=== PATIENT | female | born 2000 | race Two or more races ===

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

== ENCOUNTER 2022-02-23 15:16 | Outpatient (CLI) | payer OTHER | END 2022-02-24 17:37 | disposition home or self-care (01) | LOC: OBS/DEL 15:16 | PROVIDERS: ATTEND Obstetrics & Gynecology | DX: O26.893 Other specified pregnancy related conditions, third trimester (principal); Z3A.35 35 weeks gestation of pregnancy; Z20.822 Contact with and (suspected) exposure to COVID-19 ==

== ENCOUNTER 2022-03-15 14:27 | Inpatient (IN) | payer OTHER ==
[~2022-03-15] VITALS: Ht 149.9 cm; Wt 71.2 kg
== END 2022-03-19 14:15 | disposition home or self-care (01) | DRG 806 ==
LOC: EDSTATUS 14:30 → LDR 03-17 12:01 → OB/GYN 03-17 23:27
PROVIDERS: ADMIT Obstetrics & Gynecology; ATTEND Obstetrics & Gynecology
PROC: 10E0XZZ Delivery of Products of Conception, External Approach (ICD-10-PCS; principal; 2022-03-17)
PROC: 0UQG7ZZ Repair Vagina, Via Natural or Artificial Opening (ICD-10-PCS; 2022-03-17)
PROC: 4A1HXCZ Monitoring of Products of Conception, Cardiac Rate, External Approach (ICD-10-PCS; 2022-03-17)
DX: O71.4 Obstetric high vaginal laceration alone (principal); O41.03X0 Oligohydramnios, third trimester, not applicable or unspecified; Z37.0 Single live birth; Z3A.38 38 weeks gestation of pregnancy; Z20.822 Contact with and (suspected) exposure to COVID-19

== ENCOUNTER → 2023-04-24 | Emergency (ER) | payer OTHER ==
[~2023-04-24] VITALS: Ht 147.3 cm; Wt 50.8 kg
[2023-04-24 20:26] LABS: HEMOGLOBIN 13.9 g/dL (12.0-15.00); MEAN CELL VOLUME 86.2 fL (80.00-100.00); MEAN CORPUSCULAR HEMOGLOBIN 29.3 pg (27.00-32.0); MEAN CORPUSCULAR HGB CONC 33.9 g/dl (32.0-36.0); PLATELET COUNT 412 K/uL (150-450); RED BLOOD COUNT 4.75 M/uL (4.00-6.00); RED CELL DISTRIBUTION WIDTH 14.4 % (11.5-14.5)
[2023-04-24 20:32] LABS: PH,URINE 6.5 (5.0-8.0); URINE APPEARANCE Clear; URINE BILIRRUBIN Negative (NEGATIVE); URINE BLOOD Negative; URINE COLOR Yellow; URINE GLUCOSE Negative (NEGATIVE); URINE LEUKOCYTE Negative; URINE NITRATE Negative; URINE PROTEIN Negative (NEGATIVE); URINE UROBILINOGEN 0.2 E.U./dl
[2023-04-24 20:33] LABS: URINE BACTERIA 132.2 uL (0.0-1933); URINE EPITHELIAL CELLS 7.2 uL (0.0-38.8); URINE RBC 14.6 uL (0.0-20.8); URINE WBC 2.7 uL (0.0-23.2)
[2023-04-24 20:33] LABS: ERYTHROCYTE SEDIMENTATION RATE 12 mm/hr
[2023-04-24 20:59] LABS: ALT/SGPT 21 U/L (12-78); AST/SGOT 14 U/L (15-37); LDH 145 U/L (84-246); PHOSPHOKINASE CREATININE 52 U/L (26-192)
[2023-04-24 21:10] LABS: ALBUMIN 3.8 gm/dL (3.4-5.0); ALKALINE PHOSPHATASE 75 U/L (50-136); ALT/SGPT 23 U/L (12-78); ANION GAP 7 (10.0-20.0); AST/SGOT 13 U/L (15-37); BILIRUBIN TOTAL 0.26 mg/dL (0.3-1.2); BLOOD UREA NITROGEN 13 mg/dL (7-18); BUN CREA RATIO 15 (7.0-25.0); CALCIUM 9.6 mg/dL (8.5-10.1); CARBON DIOXIDE 31 mEq/L (21-32); CHLORIDE 103 mmol/L (98-107); CREATININE SERUM 0.88 mg/dL (0.55-1.02); GFR 81.92; GLOBULINA 3.6 G/DL (2.4-3.5); GLUCOSE FASTING 90 mg/dL (65-100); OSMOLALITY SERUM 273 MOSM/KG (275-295); POTASSIUM 4.08 mEq/L (3.5-5.1); SODIUM 137 mmol/L (136-145); TOTAL PROTEIN 7.4 gm/dL (6.4-8.2)
[2023-04-24 21:20] LABS: C-REACTIVE PROTEIN < 0.29 MG/DL (0.00-0.29)
== END | disposition home or self-care (01) ==
LOC: ER 18:33 → EMR PED 18:54 → ER 18:54
PROVIDERS: Emergency Medicine Pediatric Emergency Medicine
DX: M54.2 Cervicalgia (principal); R07.9 Chest pain, unspecified; E01.0 Iodine-deficiency related diffuse (endemic) goiter

== ENCOUNTER 2023-04-28 18:33 | Emergency (ER) | payer OTHER ==
[~2023-04-28] VITALS: Ht 147.3 cm; Wt 50.8 kg
[2023-04-28] MEDS ORDERED: GABAPENTIN100 M2 PO (19:10)
[2023-04-28] MEDS ORDERED: HYDROXYCHLOROQ200 MG PO (19:10)
[2023-04-28] MEDS ORDERED: CELEBREX100 MG (19:11)
[2023-04-28] MEDS ORDERED: KETOROLAC TROMETHAMINE 60 MG VIAL IM STA (19:51)
[2023-04-28 20:12] LABS: HEMATOCRIT 43.6 % (36.0-45.00); HEMOGLOBIN 14.9 g/dL (12.0-15.00); MEAN CELL VOLUME 86.3 fL (80.00-100.00); MEAN CORPUSCULAR HEMOGLOBIN 29.5 pg (27.00-32.0); MEAN CORPUSCULAR HGB CONC 34.1 g/dl (32.0-36.0); PLATELET COUNT 445 K/uL (150-450); RED BLOOD COUNT 5.05 M/uL (4.00-6.00); RED CELL DISTRIBUTION WIDTH 14.1 % (11.5-14.5)
[2023-04-28 20:37] LABS: BILIRUBIN TOTAL 0.27 mg/dL (0.3-1.2); CALCIUM 9.4 mg/dL (8.5-10.1); CREATININE SERUM 0.9 mg/dL (0.55-1.02); GFR 79.82; GLOBULINA 4.4 G/DL (2.4-3.5); POTASSIUM 3.75 mEq/L (3.5-5.1); TOTAL PROTEIN 8.4 gm/dL (6.4-8.2)
== END 2023-04-28 21:30 | disposition home or self-care (01) ==
LOC: ER 18:34 → EMR PED 18:59
DX: R52 Pain, unspecified (principal)

== ENCOUNTER 2023-05-04 13:31 | Emergency (ER) | payer OTHER ==
[~2023-05-04] VITALS: Ht 147.3 cm; Wt 51.3 kg
[~2023-05-04 13:31] MED LIST changes: +CELEBREX100 MG; +GABAPENTIN100 M2 PO; +HYDROXYCHLOROQ200 MG PO
[2023-05-04 15:31] LABS: HEMATOCRIT 40.9 % (36.0-45.00); HEMOGLOBIN 14.1 g/dL (12.0-15.00); MEAN CELL VOLUME 86.5 fL (80.00-100.00); MEAN CORPUSCULAR HEMOGLOBIN 29.8 pg (27.00-32.0); MEAN CORPUSCULAR HGB CONC 34.5 g/dl (32.0-36.0); PLATELET COUNT 400 K/uL (150-450); RED BLOOD COUNT 4.73 M/uL (4.00-6.00); RED CELL DISTRIBUTION WIDTH 13.4 % (11.5-14.5)
== END 2023-05-04 17:18 | disposition home or self-care (01) ==
LOC: ER 13:31
PROVIDERS: Emergency Medicine
DX: R53.81 Other malaise (principal)

== ENCOUNTER 2023-05-11 21:44 | Emergency (ER) | payer OTHER ==
[~2023-05-11] VITALS: Ht 147.3 cm; Wt 52.2 kg
[2023-05-11] MEDS ORDERED: RINGERS SOLUTION,LACTATED 1,000 ML IV SCH (22:30)
[2023-05-11] MEDS ORDERED: FAMOtidine 10 MG/ML (4ML VIAL) IV SCH (22:30)
[2023-05-12 00:38] LABS: HEMATOCRIT 42.6 % (36.0-45.00); HEMOGLOBIN 14.3 g/dL (12.0-15.00); MEAN CELL VOLUME 87.6 fL (80.00-100.00); MEAN CORPUSCULAR HEMOGLOBIN 29.5 pg (27.00-32.0); MEAN CORPUSCULAR HGB CONC 33.7 g/dl (32.0-36.0); PLATELET COUNT 455 K/uL (150-450); RED BLOOD COUNT 4.86 M/uL (4.00-6.00); RED CELL DISTRIBUTION WIDTH 13.3 % (11.5-14.5)
[2023-05-12 01:02] LABS: PARTIAL THROMBOPLASTIN TIME 32.7 SECONDS (22.0-34.0); PROTHROMBIN TIME 10.5 SECONDS (9.0-11.5)
[2023-05-12 01:07] LABS: ALBUMIN 4.1 gm/dL (3.4-5.0); BILIRUBIN TOTAL 0.37 mg/dL (0.3-1.2); CALCIUM 9.4 mg/dL (8.5-10.1); CREATININE SERUM 0.75 mg/dL (0.55-1.02); GFR 98.52; GLOBULINA 4.2 G/DL (2.4-3.5); POTASSIUM 3.59 mEq/L (3.5-5.1); TOTAL PROTEIN 8.3 gm/dL (6.4-8.2)
== END 2023-05-12 02:25 | disposition home or self-care (01) ==
LOC: ER 21:44 → EMR PED 21:56
PROVIDERS: Emergency Medicine Pediatric Emergency Medicine
DX: R10.2 Pelvic and perineal pain (principal); R51.9 Headache, unspecified; N94.6 Dysmenorrhea, unspecified; Z20.822 Contact with and (suspected) exposure to COVID-19

== ENCOUNTER 2023-05-19 13:06 | Emergency (ER) | payer OTHER ==
[~2023-05-19] VITALS: Ht 147.3 cm; Wt 50.8 kg
[2023-05-19 15:31] LABS: HEMATOCRIT 40.9 % (36.0-45.00); HEMOGLOBIN 14.1 g/dL (12.0-15.00); MEAN CELL VOLUME 87.2 fL (80.00-100.00); MEAN CORPUSCULAR HGB CONC 34.4 g/dl (32.0-36.0); PLATELET COUNT 387 K/uL (150-450); RED BLOOD COUNT 4.69 M/uL (4.00-6.00); RED CELL DISTRIBUTION WIDTH 13.1 % (11.5-14.5)
[2023-05-19 15:54] LABS: ALBUMIN 3.8 gm/dL (3.4-5.0); BILIRUBIN TOTAL 0.33 mg/dL (0.3-1.2); CALCIUM 9.3 mg/dL (8.5-10.1); CREATININE SERUM 0.71 mg/dL (0.55-1.02); GFR 104.95; GLOBULINA 3.8 G/DL (2.4-3.5); POTASSIUM 3.56 mEq/L (3.5-5.1); TOTAL PROTEIN 7.6 gm/dL (6.4-8.2)
== END 2023-05-19 17:43 | disposition home or self-care (01) ==
LOC: ER 13:06 → EMR PED 13:10 → ER 13:10 → EMR PED 17:43
PROVIDERS: Student in an Organized Health Care Education/Training Program
DX: J00 Acute nasopharyngitis [common cold] (principal); Z87.09 Personal history of other diseases of the respiratory system; Z20.822 Contact with and (suspected) exposure to COVID-19

== ENCOUNTER 2023-05-30 20:39 | Emergency (ER) | payer OTHER ==
[~2023-05-30] VITALS: Ht 147.3 cm; Wt 51.7 kg
[2023-05-30] MEDS ORDERED: MAGNESIUM HYDROXIDE 400 MG/5 ML ML PO ONE (22:45)
[2023-05-30] MEDS ORDERED: MINERAL OIL 30 ML BLIST.PACK PO ONE (22:45)
[2023-05-30] MEDS ORDERED: LACTULOSE 20 G/30 ML BLIST.PACK PO ONE (22:45)
[2023-05-30] MEDS ORDERED: FAMOtidine 2 MG/ML REDILUIDO IV ONE (23:00)
[2023-05-30] MEDS ORDERED: 0.9 % SODIUM CHLORIDE 1,000 ML IV ONE (23:00)
[2023-05-30 23:27] LABS: HEMATOCRIT 40.4 % (36.0-45.00); HEMOGLOBIN 13.8 g/dL (12.0-15.00); MEAN CELL VOLUME 85.9 fL (80.00-100.00); MEAN CORPUSCULAR HEMOGLOBIN 29.4 pg (27.00-32.0); MEAN CORPUSCULAR HGB CONC 34.3 g/dl (32.0-36.0); PLATELET COUNT 439 K/uL (150-450); RED CELL DISTRIBUTION WIDTH 12.9 % (11.5-14.5)
[2023-05-31 00:48] LABS: ALBUMIN 4.1 gm/dL (3.4-5.0); BILIRUBIN TOTAL 0.32 mg/dL (0.3-1.2); CALCIUM 10.1 mg/dL (8.5-10.1); CREATININE SERUM 0.73 mg/dL (0.55-1.02); GFR 101.64; GLOBULINA 3.8 G/DL (2.4-3.5); POTASSIUM 4.12 mEq/L (3.5-5.1); TOTAL PROTEIN 7.9 gm/dL (6.4-8.2)
[2023-05-31] MEDS ORDERED: HYOSCYAMINE SULFATE 0.125 MG TAB.SUBL SL ONE (01:45)
[2023-05-31] MEDS ORDERED: INTESTINEX680 M1 PO (01:51)
[2023-05-31] MEDS ORDERED: PEPCID40 MG PO (01:51)
[2023-05-31] MEDS ORDERED: LEVSIN/SL0.125 MG SL (01:51)
[2023-05-31] MEDS ORDERED: ONDANSETRON ODT4 MG PO (01:51)
[2023-05-31] MEDS ORDERED: MIRALAX17 GM PO (01:52)
== END 2023-05-31 02:01 | disposition home or self-care (01) ==
LOC: ER 20:39 → EMR PED 20:39
PROVIDERS: Emergency Medicine
DX: R10.9 Unspecified abdominal pain (principal); K59.00 Constipation, unspecified; E16.1 Other hypoglycemia; J45.909 Unspecified asthma, uncomplicated
CPT/HCPCS: 36415; 74240; 96365; 96366; 99283; J3490; J7030

== ENCOUNTER 2023-10-22 18:32 | Emergency (ER) | payer OTHER ==
[~2023-10-22] VITALS: Ht 147.3 cm; Wt 52.2 kg
[~2023-10-22 18:32] MED LIST changes: +INTESTINEX680 M1 PO; +LEVSIN/SL0.125 MG SL; +MIRALAX17 GM PO; +ONDANSETRON ODT4 MG PO; +PEPCID40 MG PO
== END 2023-10-22 19:47 | disposition home or self-care (01) ==
LOC: ER 18:33
DX: H18.829 Corneal disorder due to contact lens, unspecified eye (principal); H16.209 Unspecified keratoconjunctivitis, unspecified eye